=== PATIENT | female | born 1950 | race Caucasian/White ===

== ENCOUNTER → 2022-04-27 | Outpatient (CLI) | payer MEDICARE ==
[~2022-04-27] MED LIST: ASPIRIN EC81 MG PO; ATORVASTATIN CA20 MG PO; LOPRESSOR 50 MG50 MG PO; PROPAFENONE HC150 MG PO; SIMVASTATIN20 MG PO
== END ==
LOC: HEART 5 10:04
DX: I48.92 Unspecified atrial flutter (principal); R00.2 Palpitations; I49.3 Ventricular premature depolarization; I49.1 Atrial premature depolarization